=== PATIENT | female | born 2000 | race Hispanic/Latino ===

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

== ENCOUNTER 2025-06-26 11:06 | Emergency (ER) | payer SELFPAY ==
[2025-06-26 12:29] LABS: Absolute Lymphocytes (CBC) 2.3 K/uL (0.7-4.9); Hematocrit 41.1 % (36.0-45.0); Hemoglobin 13.6 g/dL (12.0-15.0); MCH 26.6 pg (27.0-35.0); MCHC 33.2 g/dL (32.0-36.0); MCV 80.3 fL (80-100); MPV 9.0 fL (7.6-11.3); Nucleated RBC Absolute Count 0.0 (0-0); Nucleated Red Blood Cells % 0.1 % (0-0); RBC Red Blood Cell Count 5.11 M/uL (3.86-4.86); White Blood Count 8.80 thou/uL (4.3-10.9)
[2025-06-26 12:48] LABS: Anion Gap 8.0 mEq/L (5.0-15.0); BUN Blood Urea Nitrogen 9 mg/dL (7-18); Glucose Level 92 mg/dL (74-106); Potassium 4.0 mEq/L (3.5-5.1)
[2025-06-26 13:04] LABS: HCG, Quantitative < 1 mIU/mL (1-3); Troponin High Sensitivity < 3.0 pg/mL (<58.9)
--- NOTE | 2025-06-26 13:22 | RAD REPORT ---
EXAM: Transvaginal OB HISTORY: Abd cramping, ;Vaginal bleeding COMPARISON: None TECHNIQUE: Multiple grayscale and color Doppler images were obtained in a transabdominal pelvic ultra sound. Spectral analysis of the Doppler waveforms of the ovaries were performed. FINDINGS: UTERUS: No IUP identified. The uterus measures 7.2 x 4.9 x 5.1 cm. A small amount of free fluid is seen in the pelvis. RIGHT OVARY: Normal flow without focal mass. Multiple peripherally oriented follicles. LEFT OVARY: Normal flow without focal mass. Multiple peripherally oriented follicles. IMPRESSION: No IUP identified. In the setting of a positive hCG level, this would indicate of unknown l ocation. Serial hCG level measurements and short term follow-up is recommended Small volume of pelvic free fluid which may be physiologic. Bilateral ovarian blood flow.
--- NOTE | 2025-06-26 13:36 | EDPHYS ---
Physician Documentation [facility] Name: Rosario Oneal Age: 24 yrs Sex: Female : 2000 Arrival Date: 06/26/2025 Time: 11:06 Bed 6 Private MD: ED Physician Carlos Moncada HPI: 06/26 13:41 This 24 yrs old Female presents to ER via Ambulatory with complaints of sb4 Abdominal Pain, Chest Pressure, Vaginal Bleeding. 13:41 Patient states that she started experiencing abdominal/pelvic cramping and heavy sb4 vaginal bleeding this morning after sexual intercourse. Her partner states that he "felt resistance "at 1 point during. She states that she did have a faint positive test 1 week ago. She states that the bleeding has now resolved but is still having some cramping. Historical: - Allergies: 11:29 No Known Allergies; hb - Home Meds: 11:29 None [Active]; hb - PMHx: 11: Heart Murmur; hb - PSHx: 11:29 None; hb ROS: 13:41 Constitutional: Negative for fever, chills, and weight loss, sb4 13:41 : Positive for pelvic pain, vaginal bleeding, menstrual abnormality, 13:41 All other systems are negative, Exam: 13:41 Constitutional: This is a well developed, well nourished patient who is awake, alert, sb4 and in no acute distress. Head/Face: Normocephalic, atraumatic. Eyes: Extra-ocular motions intact. Periorbital areas with no swelling, redness, or edema. ENT: Mucous membranes moist. Cardiovascular: Regular rate and rhythm with a normal S1 and S2. Respiratory: No increased work of breathing, no retractions or nasal flaring. Abdomen/GI: Soft, non-tender, no distension. Skin: Warm, dry with normal turgor. Normal color with no rashes, no lesions, and no evidence of cellulitis. Vital Signs: 11:27 BP 136 / 86; Pulse 92; Resp 16; Temp 97.3; Pulse Ox 100% on R/A; Weight 95.25 kg; hb Height 4 ft. 11 in. ; Pain 7/10; 11:27 Body Mass Index 42.41 (95.25 kg, 149.86 cm) hb 11:27 Pain Scale: Adult hb MDM: 11:15 Medical Screening Exam initiated sb4 13:43 Differential diagnosis: Dysmenorrhea, Ectopic , non-specific abd pain, ovarian sb4 cyst, endometriosis. Data reviewed: vital signs, nurses notes, lab test result(s), radiologic studies, and as a result, I will discharge patient. Counseling: I had a detailed discussion with the patient and/or guardian regarding the historical points, exam findings, and any diagnostic results supporting the discharge/admit diagnosis, lab results, radiology results, the need for outpatient follow up, an OB/Gyne specialist, to return to the emergency department if symptoms worsen or persist or if there are any questions or concerns that arise at home. 06/26 11:48 Order name: Basic Metabolic Panel; Complete Time: 13:05 sb4 06/26 11:48 Order name: CBC with Diff; Complete Time: 12:56 sb4 06/26 11:48 Order name: Test, Urine; Complete Time: 12:33 sb4 06/26 11:48 Order name: Quantitative Hcg; Complete Time: 13:05 sb4 06/26 11:48 Order name: Troponin HS; Complete Time: 13:05 sb4 06/26 11:48 Order name: US Transvaginal Ob; Complete Time: 13:23 sb4 06/26 11:48 Order name: IV Saline Lock; Complete Time: 12:35 sb4 06/26 11:48 Order name: Labs collected and sent; Complete Time: 12:35 sb4 06/26 11:48 Order name: EKG - Nurse/Tech; Complete Time: 13:10 sb4 EC:10 Rate is 63 beats/min. Rhythm is regular, Normal Sinus Rhythm. FL interval is normal at sb4 150 msec. QRS interval is normal at 92 msec. QT interval is normal at 398 msec. No Q waves. T waves are Normal. No ST changes noted. Clinical impression: Normal ECG. Interpreted by me. Reviewed by me. Administered Medications: No medications were administered Disposition: 18:25 Co-signature as Attending Physician, Carlos Moncada MD I reviewed the patient's care rn provided by the Advanced Practice Provider and agree with the diagnosis and treatment plan. Disposition Summary: 06/26/25 13:36 Discharge Ordered Notes: Location: Home sb4 Problem: new sb4 Symptoms: have improved sb4 Condition: Stable sb4 Diagnosis - Abnormal uterine and vaginal bleeding, unspecified sb4 Followup: sb4 - With: Emergency Department - When: As needed - Reason: Trouble breathing, Worsening of condition Discharge Instructions: - Discharge Summary Sheet sb4 - Ovarian Cyst, [id number] sb4 Forms: - Patient Portal Instructions sb4 - Leadership Thank You Letter sb4 Signatures: Dispatcher [employer] EDCarlos Abdalla MD MD rn Baxter, Heather, RN RN hb Brown, Sophia, PA-C PADonnieC sb4 Corrections: (The following items were deleted from the chart) 11:49 11:49 BASIC METABOLIC PANEL+C.LAB.BRZ ordered. EDMS EDMS 11:49 11:49 CBC+H.LAB.BRZ ordered. EDMS EDMS 11:49 11:49 Test, Urine+UC.LAB.BRZ ordered. EDMS EDMS 11:49 11:49 QUANTITATIVE HCG+C.LAB.BRZ ordered. EDMS EDMS 11:49 11:49 Troponin High Sensitivity+C.LAB.BRZ ordered. EDMS EDMS 11:49 11:49 Transvaginal Ob+US.RAD.BRZ ordered. EDMS EDMS
--- NOTE | 2025-06-26 13:36 | ER ---
Nurse's Notes [facility] Name: Rosario Oneal Age: 24 yrs Sex: Female : 2000 Arrival Date: 06/26/2025 Time: 11:06 Bed 6 Private MD: Diagnosis: Abnormal uterine and vaginal bleeding, unspecified Presentation: 06/26 11:27 Chief complaint: Miscarriage 12 weeks ago, positive test 1 week ago, heavy hb bleeding and abdominal pain that started after intercourse this morning. , LMP 9/3. Coronavirus screen: At this time, the client does not indicate any symptoms associated with coronavirus-19. Ebola Screen: No symptoms or risks identified at this time. Initial Sepsis Screen: Does the patient meet any 2 criteria? No. Patient's initial sepsis screen is negative. Does the patient have a suspected source of infection? No. Patient's initial sepsis screen is negative. Risk Assessment: Do you want to hurt yourself or someone else? Patient reports no desire to harm self or others. Onset of symptoms was June 26, 2025. 11:27 Method Of Arrival: Ambulatory hb 11:27 Acuity: JUDIE 3 hb Historical: - Allergies: 11:29 No Known Allergies; hb - Home Meds: 11:29 None [Active]; hb - PMHx: 11:29 Heart Murmur; hb - PSHx: 11:29 None; hb Screenin:40 [facility] ED Fall Risk Assessment (Adult) History of falling in the last 3 months, iw including since admission No falls in past 3 months (0 pts) Confusion or Disorientation No (0 pts) Intoxicated or Sedated No (0 pts) Impaired Gait No (0 pts) Mobility Assist Device Used No (0 pt) Altered Elimination No (0 pt) Score/Fall Risk Level 0 - 2 = Low Risk Oriented to surroundings, Maintained a safe environment. Abuse screen: Denies threats or abuse. Denies injuries from another. Nutritional screening: No deficits noted. Tuberculosis screening: No symptoms or risk factors identified. Assessment: 11:39 General: Appears in no apparent distress. Behavior is calm, cooperative. Neuro: Level iw of Consciousness is awake, alert, obeys commands, Oriented to person, place, time, situation, Moves all extremities. Full function. Cardiovascular: Patient's skin is warm and dry. Respiratory: Respiratory effort is even, unlabored, Respiratory pattern is regular, symmetrical. Derm: Skin is intact, is healthy with good turgor. Musculoskeletal: Range of motion: intact in all extremities. 12:43 Pain: Complains of pain in chest. GI: Abdomen is non-distended, Bowel sounds present X iw 4 quads. Abd is soft X 4 quads. : Reports vaginal bleeding that is. Vital Signs: 11:27 BP 136 / 86; Pulse 92; Resp 16; Temp 97.3; Pulse Ox 100% on R/A; Weight 95.25 kg; hb Height 4 ft. 11 in. ; Pain 7/10; 11:27 Body Mass Index 42.41 (95.25 kg, 149.86 cm) hb 11:27 Pain Scale: Adult hb ED Course: 11:10 Patient arrived in ED. ts1 11:15 Sonali Boone PA-C is PHCP. sb4 11:15 Carlos Moncada MD is Attending Physician. sb4 11:29 Triage completed. hb 11:29 Arm band placed on. hb 11:33 Nicole Doan, RN is Primary Nurse. iw 11:39 Patient has correct armband on for positive identification. Provided Education on: . iw 11:40 No provider procedures requiring assistance completed. iw 12:15 Initial lab(s) drawn, by me, sent to lab. Inserted saline lock: 22 gauge in right iw antecubital area, using aseptic technique. Blood collected. Flushed with 10 mL NS. 12:57 US Transvaginal Ob In Process Unspecified. EDMS 13:44 IV discontinued, intact, bleeding controlled, No redness/swelling at site. Pressure iw dressing applied. Administered Medications: No medications were administered Medication: 11:40 VIS not applicable for this client. iw Outcome: 13:36 Discharge ordered by . sb4 13:44 Discharged to home ambulatory, iw 13:44 Condition: good 13:44 Discharge instructions given to patient, Instructed on discharge instructions, follow up and referral plans. Demonstrated understanding of instructions, follow-up care, 13:45 Patient left the ED. iw Signatures: Dispatcher [employer] EDMS Nicole Doan RN RN Karley Aiken RN RN Sonali Boone PA-C PA-C sb4 Elvira Thomas PAS PAS ts1
[2025-06-26 13:49] VITALS: BP 136/86; TEMP 97.3; O2SAT 100
== END 2025-06-26 13:45 | disposition home or self-care (01) ==
LOC: ER 11:06
DX: N93.9 Abnormal uterine and vaginal bleeding, unspecified (principal); R10.9 Unspecified abdominal pain
CPT/HCPCS: 36415; 76817; 80048; 81025; 84484; 84702; 85025; 93005; 99283